=== PATIENT | female | born 1935 | race Caucasian/White ===

== ENCOUNTER 2020-01-31 19:18 | Inpatient (IN) | payer MEDICARE ==
[~2020-01-31] VITALS: Ht 157.5 cm; Wt 55.6 kg
--- NOTE | 2020-01-31 19:18 | NUR ---
TO ROOM 14 VIA STRETCHER BY EMS
--- NOTE | 2020-01-31 19:30 | NUR ---
PT IS ALERT/ORIENTED TO PERSON/TIME/PLACE BUT DOESN'T KNOW WHY SHE IS HERE. KEEPS SAYING THAT SHE HAS TO USE THE BR AND WAS PLACED ON BEDPAN...TO NO EFFECT. FORGETS SHE IS ON IT.
--- NOTE | 2020-01-31 19:40 | NUR ---
DR NOTIFIED OF BP 280/118. MANUAL PRESSURE IN LEFT ARM. UNABLE TO OBTAIN AUTO BP IN ANY EXTREMITY.
[2020-01-31 19:49] LABS: HEMATOCRIT 32.7 % (37.0-47.0); HEMOGLOBIN 9.6 g/dl (12.0-16.0); IMMATURE GRANULOCYTES 0.3 % (0.0-5.0); MEAN CELL VOLUME 95.6 fL CALC (80.0-100.0); MEAN CORPUSCULAR HGB 28.1 pG CALC (26.0-32.0); MEAN CORPUSCULAR HGB CONC 29.4 g/dL CAL (32.0-36.0); NEUT# 7.02 thou/uL (2.00-7.15); RED BLOOD COUNT 3.42 mill/uL (4.20-5.60); RED CELL DISTRI WIDTH 15.7 % (11.5-15.5)
--- NOTE | 2020-01-31 19:55 | NUR ---
PT WAS UNABLE TO VOID ON BEDPAN. C/O HAVING TO GO. ANDREA PLACED.
[2020-01-31 20:10] LABS: ALBUMIN 3.9 g/dL (3.2-5.0); ALKALINE PHOSPHATASE 77 u/l (38-126); AMYLASE 94 u/l (30-110); ANION GAP 9 (6-22 (CALC)); BILIRUBIN, TOTAL 0.5 mg/dL (0.0-1.4); BUN 38 mg/dL (8-23); BUN/CREATININE RATIO 19 (12-20 (CALC)); CARBON DIOXIDE 33 mmol/l (22-30); CHLORIDE 100 mmol/l (95-108); ETHYL ALCOHOL 0 mg/dl (0-30); GFR 24 ML/MIN (>=60 (CALC)); GFR FOR AFR.AMER. 29 ML/MIN (>=60 (CALC)); LIPASE 33 u/l (23-300); MAGNESIUM 2.1 mg/dL (1.6-2.3); POTASSIUM 5.1 mmol/l (3.5-5.1); SGOT/AST 32 u/l (9-36); SODIUM 136 mmol/l (137-146); TOTAL PROTEIN 6.8 g/dL (6.3-8.2)
[2020-01-31 20:19] LABS: URINE BILIRUBIN - DIPSTICK NEGATIVE (NEGATIVE); URINE BLOOD DIPSTICK TRACE-INTACT (NEGATIVE); URINE COLOR YELLOW; URINE GLUCOSE - DIPSTICK NEGATIVE (NEGATIVE); URINE KETONE NEGATIVE (NEGATIVE); URINE LEUK ESTERASE NEGATIVE (NEGATIVE); URINE NITRITE - DIPSTICK NEGATIVE (Negative); URINE PROTEIN - DIPSTICK 100 mg/dL (NEG-TRACE); URINE SPECIFIC GRAVITY >=1.030; URINE UROBILINOGEN - DIPSTICK 0.2 E.U./dL (0.2)
[2020-01-31 20:21] LABS: URINE RBC 0-2 RBC/hpf (0-5); URINE SQUAMOUS EPITHELIAL CELL FEW EPI/hpf (0-FEW); URINE WBC 0-2 WBC/hpf (0-5)
[2020-01-31 20:22] LABS: ACT PARTIAL THROMBO TIME 24.1 SECONDS (20.0-32.5); PROTHROMBIN TIME 9.5 SECONDS (9.0-12.5)
--- NOTE | 2020-01-31 20:26 | NUR ---
NICARDIPINE DRIP STARTED AT 5 MG/HOUR VIA PUMP FOR BP 280/118 HR 57
--- NOTE | 2020-01-31 20:30 | NUR ---
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 ALSO THAT BECAUSE OF HER MOTHER'S DEMENTIA, SHE SOMETIMES GETS VIOLENT WITH HER AND THEY WOULD NEED TO BE CONTACTED. WILLY/ENIO BRIGHT [phone]. NURSES' PORTABLE PHONE WAS GIVEN TO PT TO SPEAK WITH DAUGHTER BUT SHE DIDN'T WANT TO SPEAK TO HER AT THIS TIME SO SHE STOPPED TALKING. PT'S IN AND OUT OF ROOM. PT HAS VERY LIMITED MEMORY. KEEPS WANTING TO USE THE BATHROOM BUT DO TO BP MAINTENANCE AND FREQUENT FALLS ANDREA WAS PLACED BECAUSE PT COULD NOT VOID ON BEDPAN. WITH BP BEING 280/118...ANDREA PLACED TO PROVIDE RELIEF AFTER SPENDING 20 MINUTES ON BEDPAN WITH NO EFFECT.
--- NOTE | 2020-01-31 20:36 | NUR ---
NICARDIPINE DRIP INCREASED TO 7.5MG/HOUR VIA PUMP FOR BP OF 260/98-58
--- NOTE | 2020-01-31 20:41 | NUR ---
CARDENE DRIP INCREASED TO 10 MG/HOUR FOR BP OF 210/82-HR 57
--- NOTE | 2020-01-31 21:15 | NUR ---
TO CT VIA STRETCHER WITH PORTABLE MONITOR/IV CARDENE/IV PUMP AND RN.
--- NOTE | 2020-01-31 21:32 | NUR ---
PT RETURNED FROM CT VIA STRETCHER. MANUAL BP'S CONTINUE UNABLE TO BE READ ON MONITOR. 160/80-55. CARDENE DECREASED TO 7.5 MG/HOUR. NOTIFIED.
--- NOTE | 2020-01-31 21:37 | NUR ---
160/76-55 18 96 ON O2 @ 4 LPM NC. CARDENE DECREASED TO 5 MG/HOUR.
--- NOTE | 2020-01-31 21:50 | NUR ---
BP 182/82 57 18. CARDENE DRIP DISCONTINUED AT THIS TIME.
--- NOTE | 2020-01-31 22:39 | NUR ---
REPORT TO LULÚ HALL. ICU.
[2020-01-31] MEDS ORDERED: POLY-IRON150 MG PO (22:46)
--- NOTE | 2020-01-31 22:47 | NUR ---
2000 CC OF URINE IN ANDREA BAG.
--- NOTE | 2020-01-31 22:50 | NUR ---
TO ICU VIA STRETCHER WITH NURSING ACADEMIC COACH.
[2020-01-31] MEDS ORDERED: GABAPENTIN100 MG PO (22:53)
[2020-01-31] MEDS ORDERED: MEMANTINE HYDROC5 MG PO (22:53)
[2020-01-31] MEDS ORDERED: SINGULAIR10 MG PO (22:54)
[2020-01-31] MEDS ORDERED: CRESTOR10 MG PO (22:54)
[2020-01-31] MEDS ORDERED: TOPROL XL50 MG PO (22:55)
[2020-01-31] MEDS ORDERED: DONEPEZIL HCL10 M1 PO (22:56)
[2020-01-31] MEDS ORDERED: TIZANIDINE HYDRO4 M1 PO (22:56)
[2020-01-31] MEDS ORDERED: TRAMADOL HCL50 MG PO (22:57)
--- NOTE | 2020-01-31 22:58 | NUR ---
BROUGHT MED LIST AND REVIEWED IT WITH ME-SHOWING WHICH MEDICATIONS HAVE BEEN STOPPED. HE REPORTS METFORMIN, LOSARTAN, TORESMIDE AND NORVASC HAVE BEEN STOPPED BY MD. WILL REQUEST PHARMACY CONSULT TO REVIEW MEDICATIONS
--- NOTE | 2020-01-31 22:59 | NUR ---
DAUGHTER CALLED. SHE SPOKE WITH CARMEN AND THEN MYSELF. SHE IS UNHAPPY THAT HER MOTHER IS NOT IN A ROOM WITH A PHONE. SHE IS UNHAPPY THAT SHE CAN NOT COME STAY WITH HER MOTHER THROUGHOUT HER HOSPITAL STAY. CARMEN EXPLAINED THE VISITING POLICY AND INCLUDED THAT THEY WERE JUST RELAXED TO ALLOW 1 VISITOR PER DAY-NOT TO CHANGE OUT. THE DAUGHTER INSISTED THE [facility] ALWAYS CONTACTED HER AND WENT THROUGH HER. I ATTEMPTED TO EXPLAIN THAT SHE COULD CALL ICU AND GET UPDATES ON HER MOTHER AND SPEAK TO HER NURSE. I ALSO SUGGESTED THAT IF HER MOTHER HAS A CELL PHONE, SHE COULD USE IT. THE DAUGHTER DID NOT WANT THE FATHER TO BRING THE CELL PHONE TO THE HOSPITAL. SHE WANTED TO SPEAK TO HER MOTHER AGAIN. WHILE I WAS ON THE PHONE WITH THE DAUGHTER, THE MOTHER WAS TRANSPORTED TO ICU. WHEN TOLD THIS, SHE SAID THAT IS SOME KIND OF PLACE YOU ARE RUNNING THERE, AND SLAMMED THE PHONE IN MY EAR.
[2020-01-31 23:00] VITALS: BP 221/126
--- NOTE | 2020-01-31 23:00 | NUR ---
PT ARRIVES VIA STRETCHER ACCOMPANIED BY PATHOLOGY LABORATORY TECHNOLOGIST NAS, ON COMB SETTER AND NC 4 L/MIN. PATIENT IS ALERT AND ORIENTED TO NAME AND , AND KNOWS SHE IS IN THE HOSPITAL. PATIENT IS CONFUSED ABOUT HOW SHE GOT HERE. PT KEEPS WANTING TO GET UP TO USE BATHROOM TO VOID, IT HAS BEEN EXPLAINED TO HER SHE HAS A ANDREA CATHETER TO COLLECT HER URINE, PT INSISTS SHE DOES NOT WANT TO WET THE BED. NURSE ASSESSMENT PERFORMED. PT IS A POOR HISTORIAN. CARDENE DRIP HAD TO BE RESTARTED DUE TO BLOOD PRESSURE WAS OVER 200 SYSTOLIC. PATIENT BECAME VERY RESTLESS AND WOULD TRY TO GET UP FROM THE BED. I ASSISTED HER TO BEDSIDE COOMODE AND SHE WAS UNSTEADY, SHE DID ADMIT TO DIZZINESS. I EXPLAINED TO PT SHE IS ON BEDREST AT THIS MOMENT DUE TO HER DIZZINESS, UNSTEADY GAIT, AND FALLS AT HOME, SHE NEEDED TO BE SAFE FROM FALLING, PT INSISTS WE ARE KEEPING HER LOCKED. REASSURANCE AT ALL TIME NEEDED. PT BEGAN YELLING. IV X1 INTACT, AND FLUSHES PROPERLY. PT HAS EQUAL MODERATE GLASS SILVERER BILATERALLY, NO DROFT NOTICED TO UPPER OR LOWER EXTREMETIES, NO DROOP NOTICED. PT IS ABLE TO FOLLOW DIRECTIONS. O2 WAS WEANED TO 2 L/MIN NC. O2 SATS ARE GREATER THAN 95%. SR/SB ON TELEMETRY. AFEBRILE. CALL LIGHT WITHIN REACH.
[2020-01-31 23:15] VITALS: BP 203/90
[2020-01-31 23:30] VITALS: BP 169/74
[2020-01-31 23:45] VITALS: BP 169/76
[2020-02-01] VITALS (25 sets, daily range): BP systolic 139–208; BP diastolic 56–113
--- NOTE | 2020-02-01 00:28 | NUR ---
PATIENT'S HAS CALLED FOR UPDATES OF PATIENT, UPDATE PROVIDED. PATIENT ABLE TO TALK TO ON THE PHONE. IS HARD OF HEARING AND NEEDS REPETITION.
--- NOTE | 2020-02-01 00:32 | NUR ---
PATIENT'S DAUGHTER WILLY CALLED HERE TO NOTIFY PATIENT DOES BECOME AGITATED AND COMBATIVE WHEN HOSPITALIZED. DAUGHTER WANTED TO KNOW IF SHE COULD COME, I NOTIFIED HER POLICY REAGRDING COVID TESTING WITH PATIENT'S, PATIENT IS CURRENTLY WAITING FOR COVID SWAB RESULT. I NOTIFIED HER I WILL LET [facility] NURSE KNOW OF SITUATION AND WHAT WE CAN DO TO HELP. DAUGHTER WAS ABLE TO TALK TO PATIENT.
--- NOTE | 2020-02-01 00:54 | NUR ---
PT IS AGITATED, NON COOPERATIVE, REFUSED MIDNIGHT LAB WORK (TROPONIN). NO SIGNSOF CHEST PAIN OR COMPLAINTS OF CHEST PAIN.
--- NOTE | 2020-02-01 01:05 | NUR ---
CALLED AND SPOKE TO DR WHEAT REGARDING PATIENT STATUS, PT IS RESTLESS, AGITATED, PULLING OFF EQUIPMENT. TRYING TO PULL OFF HER ANDREA CATHETER. IS REASSURED EACH TIME, SCREAMS OUT LOUD. IS DELUSIONAL. NEW ORDER FOR X1 ATIVAN 1 MG IV.
--- NOTE | 2020-02-01 01:19 | NUR ---
BP 208/102, DIOGENES ROTHMAN RESTARTED. PT IS RESTLESS, SCREAMING.
--- NOTE | 2020-02-01 02:29 | NUR ---
PATIENT IS NOW RESTING WITH EYES CLOSED. NO ACUTE DISTRESS SHOWN. WILL CONTINUE TO MONITOR.
--- NOTE | 2020-02-01 02:29 | NUR ---
BP 140'S SYSTOLIC, CARDENE DRIP ON HOLD.
--- NOTE | 2020-02-01 02:44 | NUR ---
CALLED AND SPOKE TO PATIENT'S TO UPDATE HIM ON CURRENT PATIENT STATUS, SINCE HE ASKED TO BE CALLED BACK.
--- NOTE | 2020-02-01 03:57 | NUR ---
PATIENT CONTINUES TO REST WITH EYES CLOSED. NO ACUTE DISTRESS SHOWN. WILL CONTINUE TO MONITOR. ACRDENE DRIP STILL ON HOLD, SBP AT [employer] GOAL.
--- NOTE | 2020-02-01 04:46 | NUR ---
PT IS AWAKE, ATTEMPTING TO PULL PULSE OX OFF OF HER LEFT INDE FINGER. WILL CONTINUE TO MONITOR.
--- NOTE | 2020-02-01 05:04 | NUR ---
PT COOPERATED THIS AM TO HAVE SCIENCE TECHNICIAN DRAW HER BLOOD. REASSURANCE AT ALL TIMES.
--- NOTE | 2020-02-01 05:09 | NUR ---
RESIDENT CARE PROVIDER ABLE TO DRAW BLOOD FROM PT, PT TOLERATED WELL.
[2020-02-01 05:24] LABS: HEMOGLOBIN 10.5 g/dl (12.0-16.0); IMMATURE GRANULOCYTES 0.3 % (0.0-5.0); MEAN CELL VOLUME 94.5 fL CALC (80.0-100.0); MEAN CORPUSCULAR HGB 27.6 pG CALC (26.0-32.0); MEAN CORPUSCULAR HGB CONC 29.2 g/dL CAL (32.0-36.0); NEUT# 10.96 thou/uL (2.00-7.15); RED BLOOD COUNT 3.81 mill/uL (4.20-5.60); RED CELL DISTRI WIDTH 15.6 % (11.5-15.5)
[2020-02-01 05:54] LABS: ALBUMIN 3.8 g/dL (3.2-5.0); BILIRUBIN, TOTAL 0.6 mg/dL (0.0-1.4); CREATININE 1.7 mg/dL (0.5-1.0); MAGNESIUM 1.9 mg/dL (1.6-2.3); TOTAL PROTEIN 6.5 g/dL (6.3-8.2)
[2020-02-01 06:13] LABS: CHOLESTEROL HDL RATIO 3.2 (<4.4 (CALC)); POTASSIUM 5.3 mmol/l (3.5-5.1)
--- NOTE | 2020-02-01 06:15 | NUR ---
PATIENT RESTS WIT EYES CLOSED. LIGHTS WERE TURNED OFF AND PATIENT WAS ABLE TO GO BACK TO SLEEP. SITTER AT BEDSIDE. CALL LIGHT WITHIN REACH. CARDENE DRIP INFUSING AT 5 MG/HR. WILL CONTINUE TO MONITOR.
--- NOTE | 2020-02-01 08:24 | NUR ---
PER DR. NEW, FLUIDS STOPPED.
--- NOTE | 2020-02-01 09:18 | NUR ---
PT SLEEPING AT THIS TIME, SITTER IN ROOM WITH PT, BECAUSE BEFORE PT FELL ASLEEP, SHE WAS STATING SHE WAS GOING TO GET UP AND GO HOME,BECAUSE SHE NEEDED TO FEED HER ANIMALS AND CHILDREN. TRIED TO REORIENT PT TO TIME, BUT UNABLE TO AT THIS TIME.
--- NOTE | 2020-02-01 10:03 | NUR ---
PTS CALLED FOR UPDATE ON HER NIGHT, STATES HE WILL CALL BACK LATER BUT WONT TRY AND COME IN AND SEE HER
--- NOTE | 2020-02-01 10:12 | NUR ---
CARDENE DRIP STOPPED FOR BLOOD PRESSURE OF 141/65
--- NOTE | 2020-02-01 10:24 | NUR ---
PT MAY BENEFIT FROM PHYSICAL THERAPY INTERVENTION, THUS REQUESTING FOR P.T. EVALUATION ORDER IF MD AGREES.
--- NOTE | 2020-02-01 11:27 | NUR ---
STOPPED CARDENE FOR BLOOD PRESSURE OF 168/66 PT RESTING AT THIS TIME, SITTER AT BEDSIDE. PT CONTINUES TO SAY SHE NEEDS TO GET UP AND GO HOME, HER CHILDREN NEED HER AND SHE NEEDS TO COOK SUPPER. INFANT BABYSITTER AT BEDSIDE AT THIS TIME
--- NOTE | 2020-02-01 12:55 | NUR ---
PT ATE LUNCH TRAY AND STATES FEELS TIRED AND JUST WANTS TO TAKE A NAP BEFORE SHE GOES HOME. LIGHT TURNED OFF, SITTER AT BEDSIDE. DAUGHTER CALLED WILLY BRIGHT AT AND STATED HER MOTHER BECOMES AGGRESSIVE DAY GOES ON, AND THAT WE SHOULD BE AWARE OF HER MOOD SWINGS. STATES SHE WOULD CONTINUE TO CALL FOR UPDATES.
--- NOTE | 2020-02-01 14:05 | NUR ---
PT SLEEPING AT THIS TIME. VITAL SIGNS STABLE
--- NOTE | 2020-02-01 14:20 | NUR ---
PT TRYING TO GET OUT OF BED, XUAN ANDREA, STATING "GET THIS DAMN THING OUT OF ME" I WANT TO GO HOME, UNABLE TO REDIRECT PT AT THIS TIME, WITH CONVERSATION, TRIED TO GET PT TO FOLD WASHCLOTHS AND PT THREW THEM ON THE FLOOR, EVERYTIME I TRIED TO PUT PTS LEGS UP ON BED, SHE WOULD START YELLING AT ME TO LEAVE HER ALONE "SHE NEEDED TO GET HOME AND FEED THE ANIMALS. WITH OTHER NURSES HELP WAS ABLE TO LIFT PT BACK TO A LAYING DOWN POSITION WITH SHEET ON. REQUESTED LUDWIN CHINO TO CHECK IF A PRN ORDER COULD BE GIVEN TO CALM PT DOWN, WHILE I TRIED TO REDIRECT PT WITH CONVERSATION.
--- NOTE | 2020-02-01 15:04 | NUR ---
PT STATES TO LEAVE HER ALONE AND WHAT "THE HELL WAS i DOING IN HER BEDROOM", ADVISED PT WAS IN HOSPITAL AND I WAS HER NURSE, SHE STATED JUST LEAVE ME ALONE, YOU HAVE MADE ME TIRED, I AM GOING TO GO TO SLEEP.
--- NOTE | 2020-02-01 16:14 | NUR ---
PT SLEEPING AT THIS TIME, VITAL SIGNS STABLE
--- NOTE | 2020-02-01 16:34 | NUR ---
CASE MANAGEMENT CALLED AND STATES THAT SHE SPOKE WITH PTS IN LENGTH, AND HE IS RECEPTIVE TO HAVING HOME HEALTH AND PT WHEN PT IS BEING DISCHARGED. SHE WOULD LIKE TO HAVE HER NAME AND EXT PHONE NUMBER PLACED SO TO BE CONTACTED.
--- NOTE | 2020-02-01 17:09 | NUR ---
SPOKE WITH DAUGHTER ON PHONE AT LENGTH, THEY WERE VERY THANKFUL FOR CARE BEING GIVEN TO MOTHER. PT IS STILL SLEEPING AT THIS TIME
--- NOTE | 2020-02-01 18:20 | NUR ---
PT REMAINS SLEEPING, SITTER AT BEDSIDE, VITAL SIGNS STABLE.
--- NOTE | 2020-02-01 20:20 | NUR ---
ASSESSMENT COMPLETED. PT. IS ALERT TO SELF ONLY. NO DISTRESS NOTED. O2 INFUSING PER NC PER ORDER. PT. IS DROWSY AND ATE A SMALL PORTION OF PUDDING AND PO FLUIDS GIVEN ALONG WITH SCHEDULED MEDS. PT. IS ABLE TO REPOSITION SELF AND DRAW SHEET AND PAD CHANGED. PT. NOW IN FOWLERS POSITION. LEFT PUPIL IS LARGER THAN RIGHT PUPIL, PT. REPORTING SHE HAS HAD SURGERY ON THE RIGHT EYE; PT. IS A POOR HISTORIAN THOUGH. PT. ABLE TO MOVE ALL EXTREMETIES WITHOUT DIFFICULTY. ANDREA CATEHTER IN PLACE AND DRAINING AT GRAVITY LEVEL. IV SITE PATENT AND SL, FLUSHES WELL. B/P 156/65 AND HR 58-60; WILL CONTINUE TO MONITOR. CALL LIGHT IS IN REACH; BED ALARM ON; SITTER AT BEDSIDE.
--- NOTE | 2020-02-01 22:50 | NUR ---
[id number] B/P ; WILL REASSESS SHORTLY. PT. STILL ONLY ALERT TO SELF. REPOSITIONED ONTO RIGHT SIDE. PORTABLE PHONE GIVEN TO PT. TO SPEAK WITH .
--- NOTE | 2020-02-01 22:55 | NUR ---
C/O ESPINAL AND BACK PAIN; MEDICATED WITH ORDERED PRN TRAMADOL; WILL REASSESS. ROOM TEMP ADJUSTED FOR PT'S PREFERENCE.
[2020-02-02] VITALS (50 sets, daily range): BP systolic 119–213; BP diastolic 53–107
--- NOTE | 2020-02-02 00:33 | NUR ---
MANUAL B/P 208/90 AND HR 59; NICARDIPINE GTT RESTARTED AT 5MG/HR; WILL CONTINUE TO MONITOR B/P.
--- NOTE | 2020-02-02 02:15 | NUR ---
CARDENE GTT DISCONTINUED AT THIS TIME AND IV SITE SL. B/P MAINTAINED WNL. NOW 139/60, WILL CONTINUE TO MONITOR.
--- NOTE | 2020-02-02 03:53 | NUR ---
RESTING IN BED WITH EYES CLOSED; NO DISTRESS NOTED; O2 INFUSING PER NC. SITTER AT BEDSIDE.
--- NOTE | 2020-02-02 05:30 | NUR ---
PT. SITTING UP IN BED; B/P WNL; WILL CONTINUE TO MONITOR.
[2020-02-02 05:41] LABS: HEMATOCRIT 38.3 % (37.0-47.0); HEMOGLOBIN 11.3 g/dl (12.0-16.0); IMMATURE GRANULOCYTES 0.4 % (0.0-5.0); MEAN CELL VOLUME 94.8 fL CALC (80.0-100.0); MEAN CORPUSCULAR HGB CONC 29.5 g/dL CAL (32.0-36.0); NEUT# 9.89 thou/uL (2.00-7.15); RED BLOOD COUNT 4.04 mill/uL (4.20-5.60); RED CELL DISTRI WIDTH 15.6 % (11.5-15.5)
[2020-02-02 05:59] LABS: MAGNESIUM 1.8 mg/dL (1.6-2.3); POTASSIUM 4.8 mmol/l (3.5-5.1)
--- NOTE | 2020-02-02 07:15 | NUR ---
REPORT RECEIVED FROM LULÚ TRACY. PT RESTING IN BED SEMI FOWLERS WITH EYES CLOSED AND NO SIGNS OF DISTRESS. AWAKENS TO VERBAL STIMULI; ALERT AND ORIENTED ONLY TO NAME AND ; OTHERWISE CONFUSED AND VERY FORGETFUL. PT DOES NOT RECALL BEING IN THE HOSPITAL; REORIENTED, BUT THEN FORGETS AGAIN QUICKLY. DENIES PAIN. RESPIRATIONS EVEN AND UNLABORED ON OXYGEN 4.5L NC; SPO2 97%; TITRATED DOWN TO 4L. WHILE AWAKE SPO2 INCREASES TO 100% ON 4L. BP ELEVATED AT 213/72 HR 62. IV SITE TO RAC APPEARS HEALTHY AND FLUSHES. PT REQUIRES FREQUENT VERBAL CUES AND REMINDERS. SAFETY MEASURES IN PLACE INCLUDING BED ALARM; NEEDS ANTICIPATED BY STAFF. CALL LIGHT WITHIN REACH.
--- NOTE | 2020-02-02 07:35 | NUR ---
AM MEDS GIVEN EARLY FOR ELEVATED BLOOD PRESSURE INCLUDING METOPROLOL, COZAAR, AND BUMEX. ANDREA DRAINING CLEAR YELLOW URINE IN LARGE AMOUNTS; LEG STRAP INTACT TO RIGHT THIGH. PT REPOSITIONED INTO HIGH FOWLERS FOR BREAKFAST. REQUIRES SET AND UP AND MINIMAL ASSISTANCE WITH EATING.
--- NOTE | 2020-02-02 08:00 | NUR ---
DR. HOLLIS AT BEDSIDE. NEW ORDERS RECEIVED FOR PERSISTENT HYPERTENSION.
--- NOTE | 2020-02-02 08:50 | NUR ---
PT PICKING AT IV SITE TO RAC AND C/O DISCOMFORT AT SITE; SITE NOTED TO BE DISLODGED WITH COBAN AND TAPE REMOVED. SITE DC'D AND NEW SITE PLACED TO LAC; NEW SITE PLACED TO LAC. NEWLY SCHEDULED APRESOLINE ADMINISTERED; BP NOW 170/68.
--- NOTE | 2020-02-02 09:49 | NUR ---
PT YELLING OUT FOR HER ANISH. PT REORIENTED TO PLACE AND THAT ANISH IS AT HOME. PT REPEATEDLY ASKING HOW SHE GOT HERE, WHAT IS WRONG WITH HER, HAS SHE BEEN UNCONSCIOUS, ETC; NEEDS ALMOST CONSTANT REORIENTATION. ZYPREXA GIVEN. ZITHROMAX INFUSING.
--- NOTE | 2020-02-02 10:29 | NUR ---
COVID SWAB IS NEGATIVE; PT PLACED ON STANDARD PRECAUTIONS. CURRENTLY RESTING QUIETLY IN BED WITH INTERMITTENT CONFUSION; 2 ATTEMPTS TO GET OUT OF BED. CURTAINS OPEN FOR CONTINUOUS VIEW OF PATIENT AND BED ALARM ON.
--- NOTE | 2020-02-02 12:00 | NUR ---
CLONIDINE PRN GIVEN FOR BP OF 202/97 HR 70. AT BEDSIDE. DAUGHTER DEANGELO CALLED FOR AN UPDATE; ALL QUESTIONS ANSWERED TO SATISFACTION.
--- NOTE | 2020-02-02 12:30 | NUR ---
BP DOWN TO 167/70 HR 64. SET UP FOR LUNCH. REMOVED OXYGEN PROB TO FINGER. REMINDED NOT TO REMOVE ATTACHMENTS.
--- NOTE | 2020-02-02 14:02 | NUR ---
PT WANTING TO GET UP OUT OF BED TO LOOK FOR HER RING; REMINDED THAT HER BELONGINGS WERE LEFT AT HOME FOR SAFE KEEPING. PT BECOMES AGITATED STATING THAT SHE IS NOT A PATIENT HERE, ONLY A VISITOR AND WANTS TO FIND HER RING. HAS INCREASED AGITATION WHEN ATTEMPTING TO REORIENT. PT TRANSFERRED TO BEDSIDE CHAIR WITH 2 PERSON ASSIST; SHE IS UNABLE TO HOLD HERSELF IN A SITTING POSITION ON THE EDGE OF BED SHE LEANS BACKWARDS; ALSO C/O DIZZINESS WITH TRANSITION FROM LAYING TO SITTING. NOW SITTING UP IN CHAIR WITH ALL ATTACHMENTS CONNECTED; REDIRECTED TO FOLD WASHCLOTHS WHICH IS EFFECTIVE AT THIS TIME. LEFT AND IS NOW BACK AT BEDSIDE. LINENS CHANGED.
--- NOTE | 2020-02-02 15:21 | NUR ---
ATTEMPTING TO HELP PT STAND; STAFF INTERVENED; PT VERY CONFUSED AND AGITATED ADAMENT THAT HER BELONGINGS ARE HERE SOMEWHERE IN THE SAFE OR THE DRAWERS; UNABLE TO BE REOREINTED AT THIS TIME. PT ALLOWED TO ATTEMPT STANDING INDEPENDENTLY WITH A NURSE TO EACH SIDE; UNABLE TO STAND. PT REMINDED OF WEAKNESS, DIZZINESS, AND NECESSITY OF PHYSICAL THERAPY; SAFETY MEASURES REINFORCED. PT ASSISTED BACK INTO BED AND BED ALARM PLACED. IS VERY HARD OF HEARING; WHEN ASKED ABOUT CARE AT HOME AND WHO ASSISTS HER WITH HER ADLS, ADMITS TO COOKING, CLEANING, MEDS, AND ALL CARE; ALSO ADMITS THAT PT HAS NOT HAD A BATH IN A YEAR. STATES THAT HE IS WILLING TO CONSIDER REHAB OPTIONS AFTER DISCHARGE. CASE MANAGEMENT NOTIFIED. DAUGHTER NOW AT BEDSIDE.
--- NOTE | 2020-02-02 16:35 | NUR ---
DUE TO FAMILY DYNAMICS AND DISAGREEMENT BETWEEN PATIENTS AND DAUGHTER ON WHO IS POA CASE MANAGEMENT AND PLANOGRAPH OPERATOR, JOSE G, ARE ON UNIT SPEAKING WITH FAMILY. AT THIS TIME IS POA AND GIVES PERMISSION FOR DAUGHTER WILLY BRIGHT TO VISIT AND SPEAK ON PHONE TO PATIENT AT ANY TIME, BUT STAFF IS NOT TO UPDATE HER ON HER HOSPITAL STAY OR DISCHARGE PLANS. SECURITY REQUESTED FOR VERBAL ALTERCATION BETWEEN AND DAUGHTER AT BEDSIDE.
--- NOTE | 2020-02-02 18:43 | NUR ---
ASSISTED TO BSC FOR SMALL HARD BLACK BOWEL MOVEMENT; SPECIMEN SENT TO LAB TO TEST FOR OCCULT BLOOD. PT REMAINS VERY CONFUSED, BUT PLEASANT. RESPOSITIONED BACK INTO BED SEMI FOWLERS; ATE 50% OF DINNER. BED ALARM IN PLACE. PT DOES NOT FOLLOW INSTRUCTIONS TO USE CALL LIGHT; NEEDS ANTICIPATED BY STAFF.
--- NOTE | 2020-02-02 19:20 | NUR ---
PT. YELLING OUT; WHEN QUESTIONED PT WHAT SHE NEEDS, SHE REPORTS SHE IS LOOKING FOR HER COUSIN. PT. IS CONFUSED AND ONLY ALERT TO SELF; PT. IS VERY FORGETFUL AND REPETETIVE WITH QUESTIONS; NEEDS REINFORCEMENT OFTEN. SAFETY PRECAUTIONS IMPLEMENTED AND BED ALARM ON. ASSESSMENT COMPLETED. VSS. BOX GLUER IN PLACE AND READING SR. IV SITE PATENT AND SL; ANDREA CATHETER IN PLACE AND DRAINING AT GRAVITY LEVEL. REPOSITIONED PT. ONTO LEFT SIDE; PT. IS ABLE TO ASSIST WITH TURNING AND MOVES ALL EXTREMETIES. CALL LIGHT IS IN REACH. WILL CONTINUE TO MONITOR.
--- NOTE | 2020-02-02 21:17 | NUR ---
PT. YELLING OUT AND IS VERY CONFUSED; NEED REINFORCEMENT FREQUENTLY AND BED ALARM ON. NOTIFIED MD AND NEW ORDERS RECEIVED AND TO BE CARRIED OUT.
--- NOTE | 2020-02-02 22:26 | NUR ---
B/P 194/93 AND HR 68; MEDICATED WITH ORDERED PRN CLONIDINE; WILL REASSESS; PT. REMAINS CONFUSED AND RE-ORIENTED; AUTO WINDER REAPPLIED WELL SPO2 PROBE. CALL LIGHT IS IN REACH.BED ALARM ON.
[2020-02-03] VITALS (20 sets, daily range): BP systolic 100–208; BP diastolic 49–83
--- NOTE | 2020-02-03 01:03 | NUR ---
PT. REMAINS HYPERTENSIVE WITH MANUAL B/P 208/82 POST CLONIDINE AND TRAMADOL; NOTIFIED DR. HOLLIS AND NEW ORDERS RECEIVED AND TO BE CARRIED OUT.
--- NOTE | 2020-02-03 01:21 | NUR ---
WENT IN TO GIVE ONE TIME DOSE OF LABATALOL AND B/P DOWN TO 158/71; WILL HOLD FOR NOW AND COTINUE TO MONITOR.
--- NOTE | 2020-02-03 03:52 | NUR ---
LAB IN AT BEDSIDE OBTAINING BLOOD WORK. BED ALARM ON. B/P WNL. CALL LIGHT IS IN REACH.
--- NOTE | 2020-02-03 04:20 | NUR ---
PT. CHECKED FOR INCONTINENCE OF BM; NONE NOTED; PT. DROWSY. VSS. NO DISTRESS NOTED. ANDREA CATHETER BAG EMPTIED. CALL LIGHT IS IN REACH.
[2020-02-03 05:31] LABS: HEMOGLOBIN 9.5 g/dl (12.0-16.0); IMMATURE GRANULOCYTES 0.5 % (0.0-5.0); MEAN CORPUSCULAR HGB CONC 29.5 g/dL CAL (32.0-36.0); NEUT# 8.94 thou/uL (2.00-7.15); RED BLOOD COUNT 3.39 mill/uL (4.20-5.60); RED CELL DISTRI WIDTH 15.6 % (11.5-15.5)
[2020-02-03 05:37] LABS: HEMATOCRIT 32.2 % (37.0-47.0)
[2020-02-03 05:55] LABS: CREATININE 2.9 mg/dL (0.5-1.0)
--- NOTE | 2020-02-03 05:55 | NUR ---
HELD ONE TIME DOSE OF LABATALOL DUE TO PT'S B/P REMAINING UNDER PARAMETERS. PT. RESTING IN BED WITH EYES CLOSED; VSS. NO DISTRESS NOTED. O2 @4LITERS/MIN PER NC PER ORDER. CALL LIGHT IS IN REACH. BED ALARM ON.
[2020-02-03 06:22] LABS: POTASSIUM 5.3 mmol/l (3.5-5.1)
--- NOTE | 2020-02-03 08:20 | NUR ---
PT note Patient is screened for rehab intervention and she may benefit from OT/ PT and ST consults if medical agrees
--- NOTE | 2020-02-03 08:35 | NUR ---
PT IS SEEN AWAKE RESTING IN THE BED, CONFUSED AND ASKING APPROPRIATE QUESTIONS TO WHERE SHE IS AND WHY. LUNGS DIMINISHED, RHONCHI AT BASES, USES [address]EDs IN PL[address], NO PEDAL EDEMA NOTED. NO COMPLAINTS, NO DISTRESS. ARRIVES TO BEDSIDE, SAYS THAT SHE IS MORE CONFUSED TODAY.
--- NOTE | 2020-02-03 11:21 | NUR ---
PT WITH AT BEDSIDE, SEEN CONVERSANT WITH HIM ALTHOUGH CONFUSED. PT SEEN BY DR HOLLIS THIS AM, PLAN IS TO DISCHARGE HER TO REHAB ONCE BP IS BETTER CONTROLLED.
--- NOTE | 2020-02-03 14:02 | NUR ---
ANISH HAS GONE HOME. PT CONTINUES TO REST IN THE BED, NO DISTRESS NOTED. PT FED HERSELF OVER HALF OF NOON MEAL.
--- NOTE | 2020-02-03 19:30 | NUR ---
ASSESSMENT COMPLETED. PT. ALERT TO SELF ONLY. CBB AND LINENS CHANGED AT THIS TIME. IV SITE PATENT TO LAC AND FLUSHES WELL. VSS. OFFERED PO FLUIDS. ANDREA CATHETER DRAINING AT GRAVITY LEVEL. REPOSITIONED. CALL LIGHT IS IN REACH. WILL CONTINUE TO MONITOR.
--- NOTE | 2020-02-03 22:33 | NUR ---
RESTING IN BED WITH NO DISTRESS NOTED; DENIES NEEDS/PAIN. BED ALARM ON. CALL LIGHT IS IN REACH.
[2020-02-04] VITALS (9 sets, daily range): BP systolic 107–187; BP diastolic 45–78
--- NOTE | 2020-02-04 00:27 | NUR ---
B/P 187/71 AND MEDICATED WITH ORDERED PRN CLONIDINE; WILL REASSESS. NO DISTRESS NOTED; CALL LIGHT IS IN REACH.
--- NOTE | 2020-02-04 02:25 | NUR ---
RESTING IN BED COMFORTABLY; PO FLUIDS OFFERED. CALL LIGHT IS IN REACH.
--- NOTE | 2020-02-04 04:30 | NUR ---
PT. ASSISTED TO REPOSITION IN BED AND CHECKED FOR INCONTINENCE OF CM; NONE NOTED. PO FLUIDS OFFERED. VSS. NO DISTRESS NOTED; BED ALARM ON FOR SAFETY. CALL LIGHT IS IN REACH.
--- NOTE | 2020-02-04 06:05 | NUR ---
PT. RESTING IN BED WITH NO DISTRESS NOTED; ALERT TO SELF ONLY; CALM AT THIS TIME. FRESH WATER PROVIDED. CALL LIGHT IS IN REACH. VSS.
--- NOTE | 2020-02-04 06:45 | NUR ---
RECIEVED REPORT FROM LULÚ TRACY. ASSUMED PT CARE.
--- NOTE | 2020-02-04 08:00 | NUR ---
PT RESTING IN BED WITH EYES CLOSED. PT ALERT TO SELF ONLY. CONTINUES SB ON TELEMETRY, HR 50. PT DENIES CP, SOB OF DISTRESS AT THIS TIME. RESPIRATION EVEN/UNLABORED, SA02 96%, LS DIMINISHED THROUGHOUT. ABDOMEN SOFT/NON-TENDER, BSX4 ACTIVE, 20G TO LAC FLUSHED WITHOUT DIFFICULTY, NO S/S OF INFILTRATION NOTED AT SITE. CALL LIGHT IN PLACE, BED ALARM ON, WILL MONITOR.
--- NOTE | 2020-02-04 09:00 | NUR ---
DR. HOLLIS AT BEDSIDE FOR ASSESSMENT AND TO DISCUSS PLAN OF CARE, HOLD HYDRALAZINE AND METOPROLOL AMD DOSE R/T B/P AND HR.
[2020-02-04 09:31] LABS: HEMATOCRIT 32.3 % (37.0-47.0); HEMOGLOBIN 9.6 g/dl (12.0-16.0); IMMATURE GRANULOCYTES 0.8 % (0.0-5.0); MEAN CELL VOLUME 95.3 fL CALC (80.0-100.0); MEAN CORPUSCULAR HGB 28.3 pG CALC (26.0-32.0); MEAN CORPUSCULAR HGB CONC 29.7 g/dL CAL (32.0-36.0); NEUT# 15.9 thou/uL (2.00-7.15); RED BLOOD COUNT 3.39 mill/uL (4.20-5.60); RED CELL DISTRI WIDTH 15.8 % (11.5-15.5)
[2020-02-04 09:52] LABS: CREATININE 2.8 mg/dL (0.5-1.0)
[2020-02-04 09:56] LABS: POTASSIUM 5.6 mmol/l (3.5-5.1)
--- NOTE | 2020-02-04 10:13 | NUR ---
PT ARRIVED AT BEDSIDE FOR VISIT.
--- NOTE | 2020-02-04 10:15 | NUR ---
PT DAUGHTER CALLED, UNABLE TO PROVIDE CODE. OFFERED TO TRANSFER CALL TO PT VIA PORTABLE, DAUGHTER ASKED IF FATHER WAS AT BEDSIDE, THEN DECLINED TO SPEAK WITH PT. DAUGHTER THEN CALLED RIGHT BACK AND ASK TO SPEAK WITH [facility] [facility]P. CALL TRANSFERRED.
--- NOTE | 2020-02-04 11:56 | NUR ---
PT ASSISTED TO BSC, GENERALIZED WEAKNESS NOTED, SCANT HARD BM, ROSI CARE AND ANDREA CARE PROVIDED. PT ASSISTED BACK TO BED . CALL LIGHT IN PLACE, BED ALARM ACTIVE. WILL MONITOR. REMAINS AT BEDSIDE.
--- NOTE | 2020-02-04 13:08 | NUR ---
PT REMAINS AT BEDSIDE. GUEST LUNCH TRAY ORDERED PER REQUEST.
--- NOTE | 2020-02-04 14:03 | NUR ---
(1320 - NOW) DIAMANTE IZAGUIRRE, AN ADULT PROTECTIVE OBSTETRICS GYNECOLOGY PHYSICIAN ARRIVED AT BEDSIDE. SPOKE WITH PT AND TOGETHER, THEN ASKED TO STEP OUT AND SPOKE WITH PT PRIVATELY, THEN PT AND TOGETHER AGAIN. ARMOR RECONNAISSANCE SPECIALIST AWARE. [facility] CELL#[phone], FAX #[phone]. CASE # [id number].
--- NOTE | 2020-02-04 16:07 | NUR ---
REMAINS AT BEDSIDE WITH PT. OFFERS NO COMPLAINTS AT THIS TIME. CALL LIGHT IN REACH. WILL MONITOR.
--- NOTE | 2020-02-04 17:15 | NUR ---
PT ASSISTED TO BSC, SCANT FORMED SAMANTHA OF BM FOUND IN BED, PT CLEANED UP ANDREA CARE, LINEN CHANGED. REMAINS AT BEDSIDE.
--- NOTE | 2020-02-04 18:43 | NUR ---
REPORT CALLED TO [facility]. PT TRANSFERRED TO CT VIA BED.
--- NOTE | 2020-02-04 19:27 | NUR ---
HAND OFF REPORT RECEIVED AT 1837PM FROM MARISA,ICU NURSE. PT ARRIVED IN ROOM 271 AT APPROXIMATELY 1850PM. PT ORIENTED TO ROOM. PT ALERT AND ORIENTED X 1 TO 2. BED ALARM ACTIVATED. VSS. PT HAS RHONCHI THAT CLEARS WITH COUGHING ON BILATERAL UPPER LOBES. REPORT GIVEN TO LULÚ MON.
--- NOTE | 2020-02-04 20:00 | NUR ---
PATIENT ALERT, VERBAL WITH CONFUSION, ABLE TO MAKE NEEDS KNOWN--ABLE TO TOLERATE MEDS WELL WHOLE. ANDREA PATENT AND DRAINING CLEAR YELLOW URINE TO BSB WITHOUT DIFFICULTY. CONT OF BOWEL--ABLE TO ASK FOR HELP WITH TRANSFER TO BEDSIDE COMMODE NEEDED. 1 PERSON ASSIST WITH ALL TRANSFERS--PATIENT EXTREMELY UNSTEADY WITH POOR SAFETY AWARENESS AND JUDGEMENT. DENIES PAIN AT TIME OF ASSESSMENT--APPEARS VERY PARANOID AND ON EDGE--EASILY AGITATED. O2 @ 4L/MIN BNC-CONT TO BE SOB WITH ANY EXERTION. LS WITH RHONCHI THROUGHOUT ALL LOBES--CONGESTED PRODUCTIVE COUGH NOTED WITH THICK WHITE SPUTUM PRODUCTION--SMALL AMOUNT. WILL CONT TO MONITOR FOR ANY FURTHER CHANGES.
--- NOTE | 2020-02-04 21:50 | NUR ---
CALLED TO PATIENT'S ROOM BY OCTAVIANO WHO STATED SHE WANTS TO SPEAK WITH HER DOCTOR. UPON ENTERING ROOM, PATIENT STATES TO THIS SCHOOL CUSTODIAN, "WHERE AM I? I WANT MY , GET ME OUT OF HERE!" THIS SCHOOL CUSTODIAN WAS ABLE TO SPEAK WITH PATIENT AND EXPLAIN TO HER THAT SHE WAS HER DUE TO HER BP BEING HIGH, TO REGULATE HER MEDS AND TO HOPEFULLY GET STRONGER TO BE ABLE TO GET BACK HOME WITH HER . CONVERSATION APPEARED TO BE TAKEN VERY WELL BY PATIENT. SOON THIS SCHOOL CUSTODIAN EXITED ROOM, PATIENT BEGAN SCREAMING, TRYING TO CLIMB OUT OF BED, ATTEMPTING TO PULL CATHETER AND IV OUT--PATIENT DID DISLODGE IV SITE--NEW SITE PLACED--22 GAUGE TO RFA--TOLERATED INSERTION WELL--FLUSHES WELL. PRN ZYPREXA GIVEN EARLIER IN SHIFT WHEN SHE SEEM TO BE BECOMING PARANOID AND ON EDGE--NEGATIVE EFFECT. ALSO RECEIVED SCHED SEROQUEL AT HS--MINIMAL EFFECT. CALL PLACED TO BOAT TENDER MD HOLLIS--NEW ORDERS TO GIVE ATIVAN 1MG IV TIMES 1 NOW AND CHECK AN EKG IN THE AM. WILL CONT TO MONITOR FOR FURTHER CHANGES.
[2020-02-05] VITALS (8 sets, daily range): BP systolic 144–194; BP diastolic 51–81
--- NOTE | 2020-02-05 | NUR ---
PATIENT RESTING ON AND OFF THIS SHIFT--MULTIPLE COMPLAINTS OF CATHETER BURNING POSSIBLY DUE TO THE PULLING AND TUGGING SHE CONTINUES TO DO ON THE TUBING--MULTIPLE EPISODES OF REDIRECTION PROVIDED WITH MINIMAL EFFECT. PIV SITE TO RFA MAINTAINING AFTER REPLACING EARLIER IN THE SHIFT--FLUSHES WELL--SITE UNREMARKABLE. NO MORE ATTEMPTS TO EXIT THE BED ON HER OWN--BEHAVIORS MUCH IMPROVED SINCE ADMINISTERING IV ATIVAN EARLIER--EKG TO BE DONE @ 5A PER MD ORDERS. SAFETY PRECAUTIONS--LOW BED/ALARM--REMAIN IN PLACE. WILL CONT TO MONITOR FOR ANY FURTHER CHANGES.
--- NOTE | 2020-02-05 04:00 | NUR ---
PATIENT RESTING SOUNDLY FOR THE FIRST TIME THIS SHIFT--EYES CLOSED--NO APPARENT DISTRESS NOTED OR VOICED. PIV SITE MAINTAINING IN RIGHT FOREARM--FLUSHES WELL--SITE UNREMARKABLE. O2 CONTINUES @ 4L/MIN BNC--NO S/S OF RESP DISTRESS NOTED. SAFETY PRECAUTIONS REMAIN IN PLACE RELATED TO POOR SAFETY AWARENESS. WILL CONT TO MONITOR FOR ANY FURTHER CHANGES.
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
--- NOTE | 2020-02-05 07:52 | NUR ---
RECIEVED REPORT FROM LULÚ COPE. PT SLEEPING IN SEMI FOWLERS POSITION UPON ENTERING ROOM. PT EASY TO AWAKEN. INTRODUCED SELF TO PT AND DISCUSSED POC. PT IS A/OX3. ASSESSMENT AND VITALS COMPLETED AT THIS TIME. BP. 119/69, HR 69, O2 94% ON ROOM AIR. RESPIRATIONS ARE EVEN AND UNLABROED WIHT NO SIGNS OF DISTRESS NOTED. LUNG SOUNDS ARE CLEAR. HEART RHYTHM IS NORMAL WITH TELE IN PLACE. BOWEL SOUNDS ARE ACTIVE IN ALL QUADRANTS, LAST REPORETD BM 02/04/2020. RADIAL AND PEDAL PULSES ARE STRONG WITH NORMAL CAPILLARY REFILL. #22G IN LFA RUNNING WITH IVF PER ORDER, SITE APPEARS HEALTHY ANDF PATENT. PT DENIES OF ANY PAIN OR DISCOMFORTS AT THIS TIME. ALL SAFTEY PRECAUTIONS ARE IN PLACE WITH CALL LIGHT IN REACH. WILL CONTINUE TO MONITOR
--- NOTE | 2020-02-05 10:29 | NUR ---
REASSESSMENT OF BP AT THIS TIME RESUTLING IN 151/53, HR 68. RESPIRATIONS AREE EVEN AND UNLABROED WIHT NO SIGNS OF DISTRESS NOTED. ALL SAFETY PRECAUITIONS ARE IN PLACE WITH CALL LIGHT IN REACH AND BED ALARM ACTIVE . WILL CONTINUE TO MONITOR
--- NOTE | 2020-02-05 10:30 | NUR ---
DR HOLLIS AT BEDSIDE DISCUSSED POC WITH PT
--- NOTE | 2020-02-05 12:27 | NUR ---
PT SLEEPING IN SEMI FOWLERS POSITION UPON ENTERING ROOM. PT IS A/O TO SELF. RESPIRATIONS ARE EVEN AND UNLABORED WITH NO SIGNS OF DISTRESS NOTED. NO SIGNS OF ANY PAIN. ALL SAFTEY PRECAUTIONS ARE IN PLACE WITH CALL LIKGHT IN REACH. WILL CONTINUE TO MONITOR
--- NOTE | 2020-02-05 15:00 | NUR ---
REPORTED BP 163/67, HR 56, O2 99%. PT TO BE MEDICATED PER EMAR
--- NOTE | 2020-02-05 16:44 | NUR ---
REPORTED BP RESULTING IN 194/71, HR 72. PT TO BE MEDICATED PER EMAR. RESPIRATIONS ARE EVEN AND UNLABORED WITH NO SIGNS OF DISTRESS NOTED.PT DENIES ANY PAIN OR DISCOMFORTS AT THIS TIME. ALL SAFETY PRECAUTIONS ARE IN PLACE WITH CALL LIGHT IN REACH. WILL CONTINUE TO MONITOR
--- NOTE | 2020-02-05 20:00 | NUR ---
PATIENT ALERT, VEBRAL WITH CONFUSION, ABLE TO MAKE NEEDS KNOWN--ABLE TO TOLERATE MEDS WELL WHOLE. CONT ON IV ABT THERAPY RELATED TO SARABJIT LOWER LOBE PNEUMONIA WITH NO SIDE EFFECTS NOTED THUS FAR. PIV SITE PATENT TO RIGHT FOREARM--FLUSHES WELL--SITE UNREMARKABLE. NS BEGAN PER MD ORDERS @ 8PM @ 30ML/HR--INFUSING WITHOUT DIFFICULTY--TOLERATING FLUIDS WELL. O2 @ 3L/TN BNC--SATS 96-97% ATTEMPTING TO TITRATE PATIENT DOWN FROM THE ORIGINAL 4L/MIN BNC SHE IS ON AT HOME--MAINTAING WELL AT THIS TIME WITHOUT ANY S/S OF RESP DISTRESS NOTED--SOB ONLY NOTED WITH EXERTION. ANDREA PATENT AND DRAINING CLEAR YELLOW URINE TO BSB WITHOUT DIFFICULTY. CONT OF BOWEL--ABLE TO TRANSFER--STAND PIVOT WITH ONE PERSON ASSIST ON AND OFF THE BSC WITHOUT DIFFICULTY. BLOOD CULTURES RESULTED NEGATIVE TIMES 4. RECEIVED PRN ZYPREXA TIMES 1 AT HS WITH MINIMAL EFFECT NOTED. NON-PRODUCTIVE CONGESTED COUGH NOTED THIS SHIFT. TOLERATING INCREASE IN SEROQUEL DOSE @ HS WELL THUS FAR. B/P STABLE DESPITE SOME ISSUES ON PREVIOUS SHIFT @ 144/65 P75. SPOKE WITH SON EARLIER ON THE TELEPHONE--SEEMED TO LEFT HER SPIRITS SOME. NO APPARENT PAIN OR DISCOMFORT NOTED OR VOICED. WILL CONT TO MONITOR FOR ANY FURTHER CHANGES.
[2020-02-06] VITALS (10 sets, daily range): BP systolic 148–236; BP diastolic 67–88
--- NOTE | 2020-02-06 | NUR ---
PATIENT RESTING SOUNDLY IN BED WITH EYES CLOSED AT THIS TIME--MINIMAL ATTEMPTS TO GET OUT OF BED ON HER OWN MADE THIS SHIFT--RDIRECTLY VERY EASILY WITH ANY BEHAVIORS--POSITIVE EFFECT FROM ZYPREXA GIVEN AT HS. NO APPAREN DISTRESS NOTED. PIV SITE PATENT TO RIGHT FOREARM--SITE UNREMARKABLE--NS INFUSING @ 30ML/HR WITHOUT DIFFICULTY--TOLERATING FLUIDS WELL. O2 @ 3L/MIN BNC--SATS 96-97%--NO S/S OF RESP DISTRESS AT REST--CONT TO HAVE SOME EXERTIONAL SOB. WILL CONT TO MONITOR FOR ANY FURTHER CHANGES.
--- NOTE | 2020-02-06 04:00 | NUR ---
PATIENT RESTED SOUNDLY MOST ALL NIGHT--STARTING TO BECOME SLIGHTLY ANXIOUS AND ATTEMPT TO STAND ON HER OWN--REDIRECTION SUCCESSFUL THUS FAR. PIV SITE PATENT TO RFA--FLUSHES WELL--SITE UNREMARKABLE. NS INFUSING WELL @ 30ML/HR--TOLERATING FLUIDS WELL. SAFETY PRECAUTIONS--LOW BED, ALARM-- REMAIN IN PLACE RELATED TO POOR SAFETY AWARENESS. WILLL CONT TO MONITOR FOR ANY FURTHER CHANGES.
[2020-02-06 05:14] LABS: HEMATOCRIT 35.3 % (37.0-47.0); HEMOGLOBIN 10.3 g/dl (12.0-16.0); IMMATURE GRANULOCYTES 0.8 % (0.0-5.0); MEAN CELL VOLUME 96.4 fL CALC (80.0-100.0); MEAN CORPUSCULAR HGB 28.1 pG CALC (26.0-32.0); MEAN CORPUSCULAR HGB CONC 29.2 g/dL CAL (32.0-36.0); NEUT# 19.47 thou/uL (2.00-7.15); RED BLOOD COUNT 3.66 mill/uL (4.20-5.60); RED CELL DISTRI WIDTH 15.8 % (11.5-15.5)
[2020-02-06 05:32] LABS: ALBUMIN 3.2 g/dL (3.2-5.0); CREATININE 2.2 mg/dL (0.5-1.0); TOTAL PROTEIN 5.8 g/dL (6.3-8.2)
[2020-02-06 05:44] LABS: BILIRUBIN, TOTAL 0.3 mg/dL (0.0-1.4); POTASSIUM 5.2 mmol/l (3.5-5.1)
--- NOTE | 2020-02-06 06:03 | NUR ---
PATIENT BECAME EXTREMELY AGITATED, ANXIOUS AND RESTLESS THIS AM UPON ENTERING HER ROOM TO ADMINISTER HER AM MEDICATION--SHE BEGAN YELLIGN AND SCREAMING, AND CURSING AT STAFF. PRN IV ATIVAN GIVEN AT THIS TIME--ALSO NOTED TO HAVE A BP OF 236/81 P 66 O2 SAT 92% ON 3L/MIN BNC--SOB WITH EXERTION REMAINS--THIS CHANGER FIXER WAS ABLE TO TALK TO PATIENT WHILE ADMINISTERING MEDICATION--PATIENT BEGAN TO CALM DOWN SLOWLY. CALL RECEIVED FROM LAB WELL WITH A CRITICAL BUN OF 87--CALL PLACED TO PPAP COORDINATOR MD--TELMA--AWAITING CALL BACK AT THIS TIME.
--- NOTE | 2020-02-06 06:16 | NUR ---
SPOKE WITH RE: CRITICAL BUN OF 87--MD DOES NOT WISH TO GIVE ANY FURTHER ORDERS AT THIS TIME--STATES THIS IS EXPECTED WITH HER D/T HER DIAGNOSIS.
--- NOTE | 2020-02-06 07:45 | NUR ---
ASSESSMENT IS COMPLETED: IV SITE IS FREE FROM REDNESS OR EDEMA. HR IS REG,PULSES ARE STRONG X4, ABD IS SOFT WITH ACTIVE BS. BREATH SOUNDS ARE CLEAR,BILATERALLY, NO C/O SOB. GAVE BP MEDS EARLY DUE TO HIGH BP. 220/88.
--- NOTE | 2020-02-06 09:30 | NUR ---
RECHECKED BP : 217/88, GAVE CLONIDINE. WILL RECHECK IN 1 HR.
--- NOTE | 2020-02-06 10:00 | NUR ---
CALLED DR. [place]STON OFFICE SPOKE TO RUTHY GAVE PT INFORMATION.
--- NOTE | 2020-02-06 10:15 | NUR ---
IN TO SEE PT INQUIRING ABOUT BP. STATED" SHE HAS BEEN HERE 1 WEEK AND BP IS STILL HIGH".RECHECKED MANUAL 172/78. INFORMED PATRICIA BERRIOS AND GLADYS CHISEL MORTISER OPERATOR. SPOUSE IS WANTING TO TALK TO THE PHARMACOEPIDEMIOLOGIST. WILL HAVE ARPN TO SEE. PT AND SPOUSE. CASE MANAGEMENT ALSO SPOKE WITH FAMILY , AGAIN ASKED TO SPEAK TO THE PHARMACOEPIDEMIOLOGIST. SHE THEN WENT TO INFORM CHISEL MORTISER OPERATOR AND ARPN.
--- NOTE | 2020-02-06 12:00 | NUR ---
PT IS RELAXING IN BED FAMILY IN THE ROOM. IV SITE IS FREE FROM REDNESS OR EDEMA.
--- NOTE | 2020-02-06 13:01 | NUR ---
ATTEMPTING TO CALL SPOUSE, PT IS CURRENTLY RESTING.,
--- NOTE | 2020-02-06 13:23 | NUR ---
FAMILY CAME TO THE DESK. AND INQUIRED "WHY DID YOU CALL, DID THE DR COME" INFORMED "I THOUGHT U MAY HAVE HAD A NOTHER QUESTION, DID NOT REALIZE THAT U WANTED US TO CALL BACK WHEN A DR CAME" SPOKE WITH CASE MANAGEMENT AND PUTTYING AND CALKING SUPERVISOR.
--- NOTE | 2020-02-06 13:55 | NUR ---
PT. NOTE Miss Huerta was sleeping as entered room. called her name a number of times w/o response, tried to stimulate arousal by moving toes and feet, patient did not wake.
--- NOTE | 2020-02-06 17:33 | NUR ---
CALLED DR DENISE RE: VISITING WITH PT. WILL CHECK THE LABS AND ORDER WHAT IS NEEDED. DR DENISE IS SPEAKING WITH SPOUSE NOW.
--- NOTE | 2020-02-06 17:41 | NUR ---
WILL ORDER AN US OF THE KIDNEY IN THE AM.
[2020-02-07] VITALS (7 sets, daily range): BP systolic 120–224; BP diastolic 55–106
--- NOTE | 2020-02-07 00:15 | NUR ---
PT YELLING OUT. REORIENTED TO ROOM AND SITUATION. PT WITH INCREASED AGITATION. ATIVAN ADMINISTERED PER ORDER. FILM CASTING OPERATOR WILL CONTINUE TO MONITOR
[2020-02-07 05:18] LABS: HEMATOCRIT 39.2 % (37.0-47.0); HEMOGLOBIN 11.2 g/dl (12.0-16.0); MEAN CELL VOLUME 97.5 fL CALC (80.0-100.0); MEAN CORPUSCULAR HGB 27.9 pG CALC (26.0-32.0); MEAN CORPUSCULAR HGB CONC 28.6 g/dL CAL (32.0-36.0); RED BLOOD COUNT 4.02 mill/uL (4.20-5.60); RED CELL DISTRI WIDTH 15.9 % (11.5-15.5)
[2020-02-07 05:45] LABS: ALBUMIN 3.4 g/dL (3.2-5.0); BILIRUBIN, TOTAL 0.3 mg/dL (0.0-1.4); CREATININE 2.2 mg/dL (0.5-1.0)
[2020-02-07 05:47] LABS: POTASSIUM 5.5 mmol/l (3.5-5.1)
--- NOTE | 2020-02-07 06:50 | NUR ---
REPORT RECEIVED FROM LULÚ GARNETT. PT RESTING IN BED. NO S/S OF DISTRESS AT THIS TIME. SAFETY PRECAUTIONSIN PLACE. WILL CONTINUE TO MONITOR.
--- NOTE | 2020-02-07 09:04 | NUR ---
PT RESTING IN BED. ALERT TO SELF. RESPIRATIONS ARE SHALLOW ON O2 @ 2L VIA NC. LUNGS SOUND DIMINISHED. PT WAS BOOSTED UP IN BED AND REPOSITIONED. PEDAL PULSES ARE WEAK. MD TO BE NOTIFIED OF PT BP BEING ELIVATED. BED ALARM ACTIVE FOR PT SAFETY. WILL CONTINUE TO MONTIOR.
--- NOTE | 2020-02-07 12:18 | NUR ---
PT AT THE BEDSIDE. PT BP IS ELEVATED, NOTIFIED PT TO BE MEDICATED PER EMAR ORDERS. SAFETY PRECAUTIONS IN PLACE. WILL CONTINUE TO MONTIOR.
--- NOTE | 2020-02-07 14:57 | NUR ---
PT OFF THE FLOOR TO GET AN ULTRASOUND, ACCOMPANIED BY STAFF.
--- NOTE | 2020-02-07 16:13 | NUR ---
PT RESTING IN BED, AT BEDSIDE. RESPIRATIONS ARE EVEN AND UNLABORED ON O2 @ 2L VIA NC. SAFETY PRECAUTIONS IN PLACE. WILL CONTINUE TO MONITOR.
--- NOTE | 2020-02-07 23:00 | NUR ---
PATIENT RESTING IN BED-YELLING OUT WANTS TO GO HOME. PATIENT IS CONFUSED TO TIME AND PLACE. REPORIENTED TO PLACE AND TIME. EXPLAINED TO THE PATIENT THAT SHE WAS IN THE HOSPITAL AND IT WAS 2300 AT NIGHT-NO VISITING HOURS AT THIS TIME. WAS HERE AND BEING TREATED FOR HER HTN. ASSISTED PATIENT WITH TV REMOTE AND FOUND TV SHOW THAT SHE WOULD LIKE TO WATCH. CALL LIGHT IN REACH. BED ALARM IN PLACE FOR PATIENT SAFETY. SAFETY PRECAUTIONS REINFORCED WITH PATIENT. WILL CONT TO MONITOR.
--- NOTE | 2020-02-07 23:33 | NUR ---
PATIENT RESTING IN BED WITH HOB ELEVATED AND EYES CLOSED. RESPS ARE EVEN AND UNLABORED. SALINE LOCK TO RIGHT FOREARM INTACT AND HEALTHY AT THIS TIME. ANDREA CATH PATENT AND DRAINING CLOUDY ELLIOTT URINE. BED ALARM IN PLACE FOR PATIENT SAFETY. CALL LIGHT IN REACH. WILL CONT TO MONITOR.
--- NOTE | 2020-02-08 00:29 | NUR ---
PATIENT CALLING AND ASKING FOR SOMETHING TO EAT-PROVIDED WITH [employer] AND [employer] WITH PEANUT BUTTER. WATCHING TV AT THIS TIME. BED ALARM IN PLACE. SAFETY PRECAUTIONS REINFORCED. CALL LIGHT IN REACH. WILL CONT TO MONITOR.
--- NOTE | 2020-02-08 02:33 | NUR ---
PATIENT WITH HOB ELEVATED AND EYES CLOSED. O2 VIA NASAL CANNULA IN PLACE. RESPS ARE EVEN AND UNLABORED. APPEARS SLEEPING. ANDREA PATENT AND DRAINING ELLIOTT URINE. BED ALARM IN PLACE FOR PATIENT SAFETY. CALL LIGHT IN REACH. WILL CONT TO MONITOR.
--- NOTE | 2020-02-08 04:15 | NUR ---
PATIENT RESTING IN BED-SLIGHTLY SOB-O2 SAT-91% ON O2 VIA NASAL CANNULA. PATIENT TURNED AND REPOSITIONED. PATIENT WITH UPPER AIRWAY CONGESTION-ENCOURAGED TO CDB-UNABLE TO EXPECTORATE SECREATIONS. SALINE LOCK TO RIGHT FOREARM INTACT AND REMAINS HEALTHY AT THIS TIME. ANDREA CATH PATENT AND DRAINING ELLIOTT URINE. SAFETY PRECAUTIONS REINFORCED. BED ALARM IN PLACE FOR PATIENT SAFETY. CALL LIGHT IN REACH. WILL CONT TO MONITOR.
[2020-02-08 05:21] VITALS: BP 130/63
[2020-02-08 05:31] LABS: HEMATOCRIT 34.3 % (37.0-47.0); HEMOGLOBIN 9.8 g/dl (12.0-16.0); MEAN CELL VOLUME 98.6 fL CALC (80.0-100.0); MEAN CORPUSCULAR HGB 28.2 pG CALC (26.0-32.0); MEAN CORPUSCULAR HGB CONC 28.6 g/dL CAL (32.0-36.0); RED BLOOD COUNT 3.48 mill/uL (4.20-5.60); RED CELL DISTRI WIDTH 16.2 % (11.5-15.5)
[2020-02-08 05:59] LABS: ALBUMIN 2.8 g/dL (3.2-5.0); BILIRUBIN, TOTAL 0.3 mg/dL (0.0-1.4); CREATININE 2.2 mg/dL (0.5-1.0); POTASSIUM 4.9 mmol/l (3.5-5.1); TOTAL PROTEIN 5.1 g/dL (6.3-8.2)
--- NOTE | 2020-02-08 06:15 | NUR ---
PATIENT CONT TO BE CONGESTED-PATRICIA DELGADO APRN CALLED AND ORDER FOR LASIX RECIEVED. PATIENT MEDICATED WITH LASIX 40MG ORDERED VIA RIGHT FOREARM SITE. PPATIENT REMAINS WITH HOB ELEVATED AND O2 VIA NASAL CANNULA IN PLACE. ANDREA PATENT AND DRAINING ELLIOTT URINE. BED ALARM IN PLACE. SAFETY PRECAUTIONS REINFORCED. CALL LIGHT IN REACH. WILL CONT TO MONITOR.
[2020-02-08 07:28] VITALS: BP 118/57
--- NOTE | 2020-02-08 07:28 | NUR ---
RECIEVED REPORT FROM LULÚ BAER. PT RESTING IN SEMI FOWLERS POSITION UPON ENTERING ROOM. INTRDUCED SELF TO PT AND DISCUSSED POC. PT IS A/O TO SELF. ASSESSMENT AND VITALS OBATINED. BP 118/57, HR 63, O2 93% ON 3L NC. WRITTER SUGGESTED PT SIT UP IN BED TO INCREASE O2 SAT, PT REFUSED. PT DENIES ANY SOB. HEART RHYTHM NORMAL. BOWEL SOUNDS ACTIVE IN ALL QUADRANTS, LAST REPORTED BM 02/04/2020. MOM ADMINISTERED TO ASSIST. ANTONIO ANRP NOTIFIED. RADIAL AND PEDAL PULSES ARE STRONG WITH NORMAL CAPILLARY REFILL. #22G IN RFA FLUSHED, SITE APPEARS HEALTHY AND PATENT. ANDREA CATATHATER IN PLACE. TUBING UNKINKED, FLOWING WITH GRAVITY. 300ML OF CLEAR YELLOW OUTPUT. PT DENIES OF ANY PAIN OR DISCOMFORTS AT THIS TIME. ALL SAFETY PRECAUTIONS ARE IN PLACE WITH BED ALARM ACTIVATED AND CALL LIGHT IN REACH. WILL CONTINUE TO MONITOR.
[2020-02-08 10:50] VITALS: BP 113/60
--- NOTE | 2020-02-08 11:56 | NUR ---
PT TRANSPORTED TO [facility] BY OCTAVIANO KRAFT IN STABLE CONDITION VIA WHEELCHAIR.
--- NOTE | 2020-02-08 12:17 | NUR ---
PT ARRIVED BACK TO [facility] ROOM 271 VIA WHEELCHAIR INSTABLE CONDITION. PT ASSISTED BACK TO BED. RESPIRATIONS ARE EVEN AND UNLABROED WITH NO SIGNS OF DISTRESS NOTED. ALL SAFETY PRECAUTIONS ARE IN PLACE WIT CALL LIGHT IN REACH AND BED ALARM ACTIVATED . WILL CONTINUE TO MONITOR
[2020-02-08] MEDS ORDERED: CLONIDINE HCL0.1 MG PO (12:37)
[2020-02-08] MEDS ORDERED: CATAPRES-T0.2 MG/21 TD (12:37)
[2020-02-08] MEDS ORDERED: APRESOLINE25 MG/TAB PO (12:37)
[2020-02-08] MEDS ORDERED: QUETIAPINE FUMA25 MG PO (12:37)
[2020-02-08] MEDS ORDERED: TOPROL XL50 MG PO (12:37)
[2020-02-08] MEDS ORDERED: PREDNISONE20 MG PO (12:37)
--- NOTE | 2020-02-08 12:52 | NUR ---
PT RESTING IN SEMI FOWLERS POSITION EATING LUNCH. RESPIRATIONS ARE EVEN AND UNLABROED WITH NO SIGNS OF DISTRESS NOTED. PT IS A/O TO SELF. PT RE-EDUCATED ON WHERE SHE IS . PT DENEIS ANY PAIN OR DISCOMFORTS AT THSI TIME. ALL SAFETY PRECAUTIONS ARE IN PLACE WITH CALL LIGHT IN REACH. WILL CONTINUE TO MONITOR
[2020-02-08] MEDS ORDERED: ZPAK PO (12:55)
--- NOTE | 2020-02-08 14:03 | NUR ---
SUPPOSITORY ADMINISTERED TO ASSIST WITH BM. VERBAL ORDERS TO REMOVE ANDREA CATHATER. ANDREA CATHATER REMOVED. PT TOLERATED WELL. PT EDUACTED ON NEED TO VOID AFTER ANDREA REMOVED. PT VERBAILZED UNDERSTANDING. PT COMPLAINS OF 5/10 BACK PAIN. PT TO BE MEDIACTED PER EMAR. ALL SAFETY PRECAUTIONSA RE IN PLACE WIHT CALL LIGHT IN REACH. WILL CONTINUE TO MONITOR
[2020-02-08 14:57] VITALS: BP 126/60
[2020-02-08 15:04] VITALS: BP 126/60
--- NOTE | 2020-02-08 15:13 | NUR ---
REASSESSMENT OF PAIN AT THIS ITME. RESUTLING IN 07/28. PT STATES ULTRAM I SHELPING. WRITTER INFORMED THAT PT HAD SCANT BM BUT NO URINE AT THIS TIME. PT INFORMED OF IMPORTANCE OF URINATING. PT VERBAILZED UNDERTSNAIND. PT INFORMED WRITTER " IM NOT GOING TO A REHAB, ITS TOO MUCH FOR MY TO GO NBACK AND FOURTH." CM TO BE NOFITIED
--- NOTE | 2020-02-08 15:26 | NUR ---
PT YET TO VOID. CLARISSA ANTHEO NOTIFIED. NO ORDERS RECIEVED.
--- NOTE | 2020-02-08 15:51 | NUR ---
PT AND EDUCATED ON DISCHARGE INSTRUCTIONS. PT AND VERBAILZED UNDERSTANDING. IV REMOVED WITH CATHATER STILL INTACT. PT TOELRATED WELL. AWAITING FOR TRANSPORTATION TO [facility]. PT INFORMED THAT SHE WILL BE GOING TO [facility]. PT VERBAILZED UNDERSTANDING.
--- NOTE | 2020-02-08 16:29 | NUR ---
Discharge instructions given. Patient verbalizes understanding of same. Discharged in stable condition via Wheelchair to [facility] with family. All belongings sent with pt. PT DISCHARGE TO [facility] VIA WHEECHAIR IN STABEL CONDITION BY MEDICAL TRANSPORT AND FOLLOWING. PT DISCHARGED WITH ALL DISCHARGE INSTURCTIONS AND BELONGINGS
--- NOTE | 2020-02-08 16:53 | NUR ---
REPORT CALLED TO KATIE AT [facility].
== END 2020-02-08 16:29 | DRG 305 ==
LOC: ED 19:18 → ED-I 19:44 → ED 19:44 → ED-I 21:58 → ED 22:15 → MS2 22:16 → ICU 22:16 → MS2 02-04 18:52
PROVIDERS: Nurse Practitioner; Nurse Practitioner Family; ADMIT Internal Medicine; ATTEND Internal Medicine
PROC: 0T9B70Z Drainage of Bladder with Drainage Device, Via Natural or Artificial Opening (ICD-10-PCS; principal; 2020-01-31)
DX: I16.1 Hypertensive emergency (principal); N17.9 Acute kidney failure, unspecified; J96.11 Chronic respiratory failure with hypoxia; J44.1 Chronic obstructive pulmonary disease with (acute) exacerbation; E87.1 Hypo-osmolality and hyponatremia; N18.4 Chronic kidney disease, stage 4 (severe); I12.9 Hypertensive chronic kidney disease with stage 1 through stage 4 chronic kidney disease, or unspecified chronic kidney disease; F03.90 Unspecified dementia, unspecified severity, without behavioral disturbance, psychotic disturbance, mood disturbance, and anxiety; R53.1 Weakness; E87.5 Hyperkalemia; D63.1 Anemia in chronic kidney disease; E86.9 Volume depletion, unspecified; M54.2 Cervicalgia; M25.551 Pain in right hip; W19.XXXA Unspecified fall, initial encounter; Z99.81 Dependence on supplemental oxygen; Z20.828 Contact with and (suspected) exposure to other viral communicable diseases
CPT/HCPCS: J2060